=== PATIENT | female | born 1975 | race Caucasian/White ===

== ENCOUNTER 2017-06-11 02:27 | Emergency (ER) | payer OTHER ==
[~2017-06-11 02:27] MED LIST: LISI-461 PO; RALT400T PO; TOPI50TA16 PO; TRVHP PO
[2017-06-11 04:42] VITALS: BP 124/76; PULSE 78; O2SAT 96
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
== END 2017-06-11 04:43 | disposition home or self-care (01) ==
LOC: C.EDB 02:27
DX: T40.1X2A Poisoning by heroin, intentional self-harm, initial encounter (principal); X58.XXXA Exposure to other specified factors, initial encounter; I10 Essential (primary) hypertension; J45.909 Unspecified asthma, uncomplicated; F17.200 Nicotine dependence, unspecified, uncomplicated; Z83.3 Family history of diabetes mellitus

== ENCOUNTER 2017-07-23 20:24 | Inpatient (IN) | payer OTHER ==
[~2017-07-23] VITALS: Ht 172.7 cm; Wt 89.8 kg
[2017-07-23] MEDS ORDERED: SODIUM CHLORIDE 0.9% 1000ML 1,000 ML IV STA (20:33)
[2017-07-23] MEDS ORDERED: PROPOFOL IV EMULSION 10 MG/ML 100 ML VIAL IV STA (20:50)
[2017-07-23] MEDS ORDERED: PROPOFOL IV EMULSION 10 MG/ML 100 ML VIAL IV ONE ×2 (20:52→23:34)
[2017-07-23 20:54] LABS: ARTERIAL BLD GAS O2 SATURATION 99.9 % (90-95); ARTERIAL BLOOD GAS BASE EXCESS -3.1 mEq/L (-9-1.8); ARTERIAL BLOOD GAS HCO3 24 mmol/L (19-24); ARTERIAL BLOOD GAS PO2 524 mm/Hg (80-95)
[2017-07-23 20:59] LABS: ALLEN TEST POS (POS); O2 ADMINISTRATION 100%
--- NOTE | 2017-07-23 20:59 | DIAGNOSTIC IMAGING REPORT ---
CHEST ONE VIEW PORTABLE CLINICAL HISTORY: 42 years-old Female presenting with CODE BLUE. TECHNIQUE: Portable supine AP view of the chest was obtained. COMPARISON: 11/12/2015. FINDINGS: Endotracheal tube terminates at the level of the clavicular heads in the mid thoracic trachea. Cardiomediastinal silhouette normal. Lungs and pleural spaces clear. Osseous structures normal. Upper abdomen normal. IMPRESSION: 1. Appropriately positioned endotracheal tube. 2. No acute cardiopulmonary disease. Electronically signed by: Darwin Vázquez M.D. 07/23/2017 8:57 PM Dictated Date/Time: 07/23/2017 8:56 PM
[2017-07-23 21:00] LABS: BASO % 0.6 %; BASO ABS # 0.04 K/uL (0-0.2); COMPLETE YES; EOS % 2.2 %; HEMATOCRIT 39.3 % (37-47); IG% 0.2 %; MEAN CELL VOLUME 91.8 fL (80-100); MEAN CORPUSCULAR HEMOGLOBIN 30.8 pg (25-34); MEAN CORPUSCULAR HGB CONC 33.6 g/dl (32-36); MEAN PLATELET VOLUME 9.5 fL (7.4-10.4); MONO % 5.9 %; NEUT % 57.1 %; PLATELET COUNT 248 K/uL (130-400); RED BLOOD COUNT 4.28 M/uL (4.2-5.4); WHITE BLOOD COUNT 6.48 K/uL (4.8-10.8)
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
[2017-07-23 21:25] LABS: URINE APPEARANCE CLOUDY (CLEAR); URINE BILIRUBIN NEG (NEG); URINE COLOR YELLOW; URINE EPITHELIAL CELL AUTO >30 /lpf (0-5); URINE NITRITE NEG (NEG); URINE SPECIFIC GRAVITY 1.026 (1.000-1.030); UROBILINOGEN NEG (NEG)
[2017-07-23 21:26] LABS: MANUAL MICROSCOPIC REQUIRED? NO; REVIEW REQ? YES
[2017-07-23 21:32] LABS: PREG INTERNAL NEGATIVE QC NEG CLEAR BACKGROUND; PREG INTERNAL POSITIVE QC POS CONTROL LINE
[2017-07-23 21:36] LABS: URINE PATH CASTS 1-5 GRANULAR CASTS /lpf (0)
[2017-07-23 22:20] LABS: PARTIAL THROMBOPLASTIN RATIO 0.8; PROTHROMBIN TIME (PATIENT) 10.4 SECONDS (9.0-12.0)
[2017-07-23 22:31] LABS: BUN/CREATININE RATIO 8.3 (10-20); CALCIUM 8.2 mg/dl (8.5-10.1); CREATININE 1.09 mg/dl (0.60-1.20); POTASSIUM 3.4 mmol/L (3.5-5.1)
[2017-07-23 22:36] LABS: CKMB/CK RATIO 2.4 (0-3.0)
--- NOTE | 2017-07-23 23:46 | EMERGENCY ROOM VISIT NOTE ---
History Report prepared by Katherine: Sheyla Gardner Under the Supervision of: Dr. Yocasta Mccauley D.O. 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 The patient presents to the ED by EMS. She had a witnessed cardiac arrest. A bystander administered CPR for around 6 minutes when PD arrived. They gave the patient 4 of Narcan nasally after which her pulse and breathing came back. EMS then arrived. She continues to be unresponsive. Initially, her O2 sat was 50-60. She was intubated BILINGUAL MEDICAL ASSISTANT. Her friends report that she uses heroin. She most often uses nasally. Her blood sugar was 175. Her last blood pressure was 97/61. The history is limited due to the patient's AMS. Source of History: EMS Onset: BILINGUAL MEDICAL ASSISTANT Position: other (global) Quality: other (cardiac arrest) Timing: other (episodic) Modifying Factors (Relieving): other (narcan) Review of Systems Unobtainable due to AMS. Past Medical & Surgical Medical Problems: (1) Altered mental status (2) Asthma (3) Cardiac arrest (4) Cholecystectomy (5) History of - hypertension (6) Overdose (7) Syncope and collapse Family History Cancer Diabetes mellitus Heart disease Hypertension Social History Smoking Status: Current Every Day Smoker Alcohol Use: none Marital Status: in relationship Housing Status: lives with significant other Occupation Status: employed Current/Historical Medications Scheduled Fluticasone Propionate (Nasal) (Flonase Allergy Relief), 2 SPRAY SHYAM DAILY Lisinopril (Lisinopril), 40 MG PO DAILY Metoprolol Succinate (Toprol Xl), 50 MG PO DAILY Minocycline Hcl (Minocycline Hcl), 1 TAB PO DAILY Rizatriptan Benzoate (Maxalt), 5 MG PO UD Topiramate (Topamax), 50 MG PO BID Allergies Coded Allergies: Acetaminophen (Verified Allergy, Unknown, GI SYMPTOMS, 11/12/15) Physical Exam Vital Signs Date Time Temp Pulse Resp B/P (MAP) Pulse Ox O2 Delivery O2 Flow Rate FiO2 07/23/17 22:51 58 12 133/104 100 Mechanical Ventilator 70 07/23/17 21:48 66 12 160/114 100 Mechanical Ventilator 70 07/23/17 21:18 78 12 125/92 100 Mechanical Ventilator 07/23/17 21:15 70 07/23/17 20:38 100 Mechanical Ventilator 07/23/17 20:38 100 Mechanical Ventilator 07/23/17 20:33 86 07/23/17 20:29 83 15 105/80 99 Mechanical Ventilator Physical Exam Limited due to clinical condition. GENERAL: unresponsive, intubated EYE EXAM: PERRL OROPHARYNX: ET tube in place and secured, no obvious secretion or bleeding NECK: supple, no nuchal rigidity, no adenopathy, non-tender CHEST: No evidence of trauma. LUNGS: Equal breath sounds bilaterally with bagging. HEART: tachycardic but regular, no murmurs, S1 normal and S2 normal ABDOMEN: abdomen soft, non-tender, normo-active bowel sounds, no masses, no rebound or guarding. BACK: Back is symmetrical on inspection and there is no deformity, no midline tenderness, no CVA tenderness. PELVIS: Stable SKIN: no rashes and no bruising UPPER EXTREMITIES: upper extremities are grossly normal. No evidence of trauma. LOWER EXTREMITIES: No pitting edema. Good pulses. No evidence of trauma. NEURO EXAM: GCS of 3. Medical Decision & Procedures ER Provider Diagnostic Interpretation: Radiology results have been interpreted by the radiologist and reviewed by me. CHEST ONE VIEW PORTABLE CLINICAL HISTORY: 42 years-old Female presenting with CODE BLUE. TECHNIQUE: Portable supine AP view of the chest was obtained. COMPARISON: 11/12/2015. FINDINGS: Endotracheal tube terminates at the level of the clavicular heads in the mid thoracic trachea. Cardiomediastinal silhouette normal. Lungs and pleural spaces clear. Osseous structures normal. Upper abdomen normal. IMPRESSION: 1. Appropriately positioned endotracheal tube. 2. No acute cardiopulmonary disease. Electronically signed by: Darwin Vázquez M.D. 07/23/2017 8:57 PM Dictated Date/Time: 07/23/2017 8:56 PM Laboratory Results Test 07/23/17 20:39 07/23/17 20:50 07/23/17 21:15 07/23/17 22:01 Immature Granulocyte % (Auto) 0.2 % White Blood Count 6.48 K/uL (4.8-10.8) Red Blood Count 4.28 M/uL (4.2-5.4) Hemoglobin 13.2 g/dL (12.0-16.0) Hematocrit 39.3 % (37-47) Mean Corpuscular Volume 91.8 fL (80-100) Mean Corpuscular Hemoglobin 30.8 pg (25-34) Mean Corpuscular Hemoglobin Concent 33.6 g/dl (32-36) Platelet Count 248 K/uL (130-400) Mean Platelet Volume 9.5 fL (7.4-10.4) Neutrophils (%) (Auto) 57.1 % Lymphocytes (%) (Auto) 34.0 % Monocytes (%) (Auto) 5.9 % Eosinophils (%) (Auto) 2.2 % Basophils (%) (Auto) 0.6 % Neutrophils # (Auto) 3.71 K/uL (1.4-6.5) Lymphocytes # (Auto) 2.20 K/uL (1.2-3.4) Monocytes # (Auto) 0.38 K/uL (0.11-0.59) Eosinophils # (Auto) 0.14 K/uL (0-0.5) Basophils # (Auto) 0.04 K/uL (0-0.2) Immature Granulocyte # (Auto) 0.01 K/uL (0.00-0.02) Arterial Blood pH 7.30 (7.35-7.45) Arterial Blood Partial Pressure CO2 49 mmHg (35-46) Arterial Blood Partial Pressure O2 524 mm/Hg (80-95) Arterial Blood HCO3 24 mmol/L (19-24) Arterial Blood Oxygen Saturation 99.9 % (90-95) Arterial Blood Base Excess -3.1 mEq/L (-9-1.8) Arterial Blood Gas Delivery 100% Brayan Test POS (POS) Lactic Acid Level 1.9 mmol/L (0.4-2.0) Total Bilirubin 0.3 mg/dl (0.2-1) Direct Bilirubin 0.1 mg/dl (0-0.2) Aspartate Amino Transf (AST/SGOT) 18 U/L (15-37) Alanine Aminotransferase (ALT/SGPT) 26 U/L (12-78) Alkaline Phosphatase 53 U/L (45-117) Total Creatine Kinase 45 U/L (26-192) Total Protein 6.8 gm/dl (6.4-8.2) Albumin 3.4 gm/dl (3.4-5.0) Human Chorionic Gonadotropin, Qual NEG (NEG) Bedside Troponin I < 0.030 ng/ml (0-0.045) Urine Color YELLOW Urine Appearance CLOUDY (CLEAR) Urine pH 5.0 (4.5-7.5) Urine Specific [place] 1.026 (1.000-1.030) Urine Protein 2+ (NEG) Urine Glucose (UA) 1+ (NEG) Urine Ketones NEG (NEG) Urine Occult Blood NEG (NEG) Urine Nitrite NEG (NEG) Urine Bilirubin NEG (NEG) Urine Urobilinogen NEG (NEG) Urine Leukocyte Esterase NEG (NEG) Urine WBC (Auto) 10-30 /hpf (0-5) Urine RBC (Auto) 0-4 /hpf (0-4) Urine Hyaline Casts (Auto) >30 /lpf (0-5) Urine Epithelial Cells (Auto) >30 /lpf (0-5) Urine Bacteria (Auto) NEG (NEG) Urine Renal Epithelial Cells 5-10 /lpf (0-5) Urine Pathogenic Casts 1-5 GRANULAR CASTS /lpf (0) Urine Opiates Screen NEG (NEG) Urine Methadone, Qualitative NEG (NEG) Urine Barbiturates NEG (NEG) Urine Phencyclidine (PCP) Level NEG (NEG) Ur Amphetamine/Methamphetamine NEG (NEG) MDMA (Ecstasy) Screen NEG (NEG) Urine Benzodiazepines Screen POS (NEG) Urine Cocaine Metabolite NEG (NEG) Urine Marijuana (THC) NEG (NEG) Prothrombin Time 10.4 SECONDS (9.0-12.0) Prothromb Time International Ratio 1.0 (0.9-1.1) Activated Partial Thromboplast Time 21.9 SECONDS (21.0-31.0) Partial Thromboplastin Ratio 0.8 Laboratory results per my review. Medications Administered Medications (Trade) Dose Ordered Sig/Gato Route Start Time Stop Time Status Last Admin Dose Admin Sodium Chloride 1,000 ml @ 999 mls/hr Q1H1M STAT IV 07/23/17 20:33 07/23/17 21:33 DC 07/23/17 20:46 999 MLS/HR Propofol (Diprivan Iv Emulsion 100ml Vial) 1 dose NOW STAT IV 07/23/17 20:50 07/23/17 20:52 DC 07/23/17 21:04 1 DOSE Dexmedetomidine HCl 200 mcg/ Sodium Chloride 50 ml @ 0 mls/hr Q0M PRN IV 07/23/17 22:23 07/24/17 08:25 DC 07/24/17 05:39 27 MLS/HR ECG Indication: toxicologic Rate (beats per minute): 82 Rhythm: sinus rhythm Findings: no acute ischemic change, prolonged QT, other (normal QRS, normal TN) ED Course 2024: The patient was evaluated in room A1. A complete history and physical exam was performed. 2032: NSS 1000 ml @ 999 mls/hr IV. Pt will unresponsive. 2049: Propofol IV. Pt became more agitated, reaching for the tube, soft restraints of propofol started. Patient would not cooperate or follow commands , would not respond to verbal stimuli. 2104: I discussed the patient's case with Camryn Worley PA-C [facility] wash house supervisor. She will evaluate the patient. 2135: I reevaluated the patient. She is stable. Patient still sedated on propofol, hemodynamically stable. 2220: I reviewed the patient's case with Dr. Garber, [facility] hospitalist. He will evaluate the patient for further management. Medical Decision Differential diagnosis: Etiologies such as toxicologic, infection, hypoglycemia, electrolyte abnormalities, cardiac sources, intracerebral event, neurologic, as well as others were entertained. Given patient's history of recurrent abuse, likely suffered respiratory depression and respiratory failure leading to eventual cardiac arrest subsequent hypoxia. CPR was started, however given initiated by bystanders on followed by police, no ED ever applied, patient regained pulses following administration of Narcan by police. However still had agonal respirations and was unresponsive. Patient intubated in the field by EMS, and retained other vital signs throughout transport time. On arrival patient still unresponsive, being bagged through her ET tube but otherwise hemodynamically stable. Patient initially did require some sedation just prior to head CT given some movement and agitation noted. Patient again to reach for tube, however would not otherwise follow commands, or perform other purposeful movements. Patient's sedation was increased for trip to CAT scan and sips when travel to intensive care unit. Agents labs otherwise to presently reassuring given a rest and sip some return of spontaneous circulation. Decision made after discussion with ICU to not initiate hypothermia protocol after patient had begun to show more responsiveness. Patient with no prior history of drug abuse. Doubt bacteremia/ sepsis, doubt dysrhythmia as initiating events of cardiac arrest. Patient admitted to medicine to be monitored in intensive care unit overnight. No evidence of acute pulmonary edema or aspiration. Patient rechecked multiple times. Medication Reconcilliation Current Medication List: was personally reviewed by me Blood Pressure Screening Patient's blood pressure: Elevated blood pressure Blood pressure disposition: Elevated BP felt to be situational Consults Time Called: 2099 Consulting Physician: LEANDRO Canales wash house supervisor Returned Call: 2104 I discussed the patient's case with her. She will evaluate the patient. Additional Consults: Time Called: 2214 Consulted Physician: Dr. Garber [facility] hospitalist Returned Call: 2220 Additional Comments: I reviewed the patient's case with him. He will evaluate the patient for further management. Impression Primary Impression: Heroin overdose Additional Impressions: Cardiac arrest Hypoxia Respiratory failure Critical Care I have personally spent greater than 60 minutes of critical care time in the direct management of this patient. This includes bedside care, interpretation of diagnostic studies, and testing, discussion with consultants, patient, and family members, and other required patient management activities. This 60 minutes is in excess of all separately billable procedures. Scribe Attestation The scribe's documentation has been prepared under my direction and personally reviewed by me in its entirety. I confirm that the note above accurately reflects all work, treatment, procedures, and medical decision making performed by me. Departure Information Dispostion Being Evaluated By Hospitalist Referrals Abbie Briscoe D.O. (PCP) Patient Instructions My [facility] Problem Qualifiers Primary Impression: Heroin overdose Encounter type: initial encounter Injury intent: accidental or unintentional Qualified Codes: T40.1X1A - Poisoning by heroin, accidental ( unintentional), initial encounter Additional Impressions: Respiratory failure Chronicity: acute Respiratory failure complication: hypoxia Qualified Codes : J96.01 - Acute respiratory failure with hypoxia
[2017-07-24] VITALS (24 sets, daily range): BP systolic 99–162; BP diastolic 61–124; PULSE 64–120; TEMP 35.4–36.9; O2SAT 93–100; Ht 172.7 cm; Wt 89.8 kg
[2017-07-24] MEDS ORDERED: RIZA5TAB10 PO (00:11)
[2017-07-24] MEDS ORDERED: METO-478 PO (00:11)
[2017-07-24] MEDS ORDERED: LSN40 PO (00:11)
[2017-07-24] MEDS ORDERED: TOPI25TA55 PO (00:11)
[2017-07-24] MEDS ORDERED: MINO100T PO (00:11)
[2017-07-24] MEDS ORDERED: FLUT0.15 NAE (00:11)
[2017-07-24] MEDS ORDERED: POTASSIUM CHLR 10 MEQ / WTR 10 MEQ in PREMIXED WATER 100 ML IV ONE (00:30)
[2017-07-24] MEDS: DexMEDEtomidine HCL IV 200 MCG in SODIUM CHLORIDE 0.9% 50ML 48 ML IV PRN ×4 (00:39→05:39)
--- NOTE | 2017-07-24 01:06 | History and Physical ---
History & Physical Date & Time of Service: Jul 23, 2017 at 23:09 Chief Complaint: Heroin Overdose Primary Care Physician: No Doctor, Assigned History of Present Illness Source: clinic records, hospital records 42 year old female with PMH hypertension, migraines, prior myocardial infarction, and known heroin/tobacco abuse, recent ER visit on 06/11/17 for heroin overdose was brought to Emergency Room for cardiac arrest. History was obtained from ER chart and the ER physician due to pt was sedated and intubated. As per ER chart, Pt was found in her car acting strange when bystander pulled her out of her car and started CPR after bystanders could not find any pulse. information systems security officer arrived on the scene and administered 4 of Narcan via nasally after which her pulse and breathing were found. She was still unresponsive when EMS arrived. Her O2 sat was 50-60 %. She was intubated on the field and sedated with fentanyl and versed. She was brought in the ED by EMS. In the ED she started on propofol and put on soft restraint because she was trying to pull out the ET tube. ICU team contacted the manager ambulatory that decided that pt was not a candidate for hypothermia protocol. Currently pt is sedated and intubated. Vitals stable. Past Medical/Surgical History Medical Problems: (1) Asthma Status: Chronic (2) Cholecystectomy Status: Resolved (3) History of - hypertension Status: Chronic Family History Cancer Diabetes mellitus FHx: thyroid disease Heart disease Hypertension Stroke Social History Smoking Status: Current Every Day Smoker (one pack per day 15 years) Smokeless Tobacco Use: No Drug Use: heroin (per hospital records) Marital Status: in relationship Occupational Status: employed Allergies Coded Allergies: Acetaminophen (Verified Allergy, Unknown, GI SYMPTOMS, 11/12/15) Home Medications Scheduled Fluticasone Propionate (Nasal) (Flonase Allergy Relief), 2 SPRAY SHYAM DAILY Lisinopril (Lisinopril), 40 MG PO DAILY Metoprolol Succinate (Toprol Xl), 50 MG PO DAILY Minocycline Hcl (Minocycline Hcl), 1 TAB PO DAILY Rizatriptan Benzoate (Maxalt), 5 MG PO UD Topiramate (Topamax), 50 MG PO BID Review of Systems Unable to obtain because patient is intubated and sedated Physical Exam Vital Signs Date Time Temp Pulse Resp B/P (MAP) Pulse Ox O2 Delivery O2 Flow Rate FiO2 07/23/17 22:51 58 12 133/104 100 Mechanical Ventilator 70 07/23/17 21:48 66 12 160/114 100 Mechanical Ventilator 70 07/23/17 21:18 78 12 125/92 100 Mechanical Ventilator 07/23/17 21:15 70 07/23/17 20:38 100 Mechanical Ventilator 07/23/17 20:38 100 Mechanical Ventilator 07/23/17 20:33 86 07/23/17 20:29 83 15 105/80 99 Mechanical Ventilator General Appearance: + pertinent finding (Sedated and intubated on vent support) Head: normocephalic, atraumatic Eyes: + pertinent finding (pinpoint pupils) ENT: + pertinent finding (ET Tube in place) Neck: no JVD, trachea midline Respiratory/Chest: lungs clear, + pertinent finding (vent support) Cardiovascular: regular rate, rhythm, no JVD, no murmur Abdomen/GI: normal bowel sounds Back: normal inspection Extremities/Musculoskelatal: no pedal edema Neurologic/Psych: + pertinent finding (unable to assess because pt is sedated) Skin: warm/dry, no rash Diagnostics Laboratory Results Results Past 24 Hours Test 07/23/17 20:39 07/23/17 20:50 07/23/17 21:08 07/23/17 21:15 Range/Units White Blood Count 6.48 4.8-10.8 K/uL Red Blood Count 4.28 4.2-5.4 M/uL Hemoglobin 13.2 12.0-16.0 g/dL Hematocrit 39.3 37-47 % Mean Corpuscular Volume 91.8 80-100 fL Mean Corpuscular Hemoglobin 30.8 25-34 pg Mean Corpuscular Hemoglobin Concent 33.6 32-36 g/dl Platelet Count 248 130-400 K/uL Mean Platelet Volume 9.5 7.4-10.4 fL Neutrophils (%) (Auto) 57.1 % Lymphocytes (%) (Auto) 34.0 % Monocytes (%) (Auto) 5.9 % Eosinophils (%) (Auto) 2.2 % Basophils (%) (Auto) 0.6 % Neutrophils # (Auto) 3.71 1.4-6.5 K/uL Lymphocytes # (Auto) 2.20 1.2-3.4 K/uL Monocytes # (Auto) 0.38 0.11-0.59 K/uL Eosinophils # (Auto) 0.14 0-0.5 K/uL Basophils # (Auto) 0.04 0-0.2 K/uL RDW Standard Deviation 43.5 36.4-46.3 fL RDW Coefficient of Variation 13.1 11.5-14.5 % Immature Granulocyte % (Auto) 0.2 % Immature Granulocyte # (Auto) 0.01 0.00-0.02 K/uL Arterial Blood pH 7.30 7.35-7.45 Arterial Blood Partial Pressure CO2 49 35-46 mmHg Arterial Blood Partial Pressure O2 524 80-95 mm/Hg Arterial Blood HCO3 24 19-24 mmol/L Arterial Blood Oxygen Saturation 99.9 90-95 % Arterial Blood Base Excess -3.1 -9-1.8 mEq/L Arterial Blood Gas Delivery 100% Brayan Test POS POS Sodium Level 142 136-145 mmol/L Potassium Level 3.4 3.5-5.1 mmol/L Chloride Level 109 98-107 mmol/L Carbon Dioxide Level 22 21-32 mmol/L Anion Gap 11.0 3-11 mmol/L Blood Urea Nitrogen 9 7-18 mg/dl Creatinine 1.09 0.60-1.20 mg/dl Est Creatinine Clear Calc Drug Dose 89.9 ml/min Estimated GFR () 72.0 Estimated GFR (Non- 62.1 BUN/Creatinine Ratio 8.3 10-20 Random Glucose 170 70-99 mg/dl Lactic Acid Level 1.9 0.4-2.0 mmol/L Calcium Level 8.2 8.5-10.1 mg/dl Total Bilirubin 0.3 0.2-1 mg/dl Direct Bilirubin 0.1 0-0.2 mg/dl Aspartate Amino Transf (AST/SGOT) 18 15-37 U/L Alanine Aminotransferase (ALT/SGPT) 26 12-78 U/L Alkaline Phosphatase 53 45-117 U/L Total Creatine Kinase 45 26-192 U/L Creatine Kinase MB 1.1 0.5-3.6 ng/ml Creatine Kinase MB Ratio 2.4 0-3.0 Total Protein 6.8 6.4-8.2 gm/dl Albumin 3.4 3.4-5.0 gm/dl Human Chorionic Gonadotropin, Qual NEG NEG Bedside Troponin I < 0.030 0-0.045 ng/ml Bedside Glucose 144 70-90 mg/dl Urine Color YELLOW Urine Appearance CLOUDY CLEAR Urine pH 5.0 4.5-7.5 Urine Specific [place] 1.026 1.000-1.030 Urine Protein 2+ NEG Urine Glucose (UA) 1+ NEG Urine Ketones NEG NEG Urine Occult Blood NEG NEG Urine Nitrite NEG NEG Urine Bilirubin NEG NEG Urine Urobilinogen NEG NEG Urine Leukocyte Esterase NEG NEG Urine WBC (Auto) 10-30 0-5 /hpf Urine RBC (Auto) 0-4 0-4 /hpf Urine Hyaline Casts (Auto) >30 0-5 /lpf Urine Epithelial Cells (Auto) >30 0-5 /lpf Urine Bacteria (Auto) NEG NEG Urine Renal Epithelial Cells 5-10 0-5 /lpf Urine Pathogenic Casts 1-5 GRANULAR CASTS 0 /lpf Test 07/23/17 22:01 Range/Units Prothrombin Time 10.4 9.0-12.0 SECONDS Prothromb Time International Ratio 1.0 0.9-1.1 Activated Partial Thromboplast Time 21.9 21.0-31.0 SECONDS Partial Thromboplastin Ratio 0.8 Diagnostic Radiology CHEST ONE VIEW PORTABLE CLINICAL HISTORY: 42 years-old Female presenting with CODE BLUE. TECHNIQUE: Portable supine AP view of the chest was obtained. COMPARISON: 11/12/2015. FINDINGS: Endotracheal tube terminates at the level of the clavicular heads in the mid thoracic trachea. Cardiomediastinal silhouette normal. Lungs and pleural spaces clear. Osseous structures normal. Upper abdomen normal. IMPRESSION: 1. Appropriately positioned endotracheal tube. 2. No acute cardiopulmonary disease. Electronically signed by: Darwin Vázquez M.D. 07/23/2017 8:57 PM Dictated Date/Time: 07/23/2017 8:56 PM Impression Assessment and Plan Unresponsive Possible related to Heroin overdose Unknown if cardiac arrest occurred Started CPR on the field by Bystander Received Narcan on field On vent support Sedated with propofol 1st Cardiac marker negative EKG showed no significant ST changes Follow CM Repeat EKG in am ECHO in AM Cardiology Consult Hypoxic respiratory failure On Vent support ABG in am Plan to wean in am Drug Dependence UDS pending Consider drug rehab program HTN Med rec from [employer] showed lisinopril and metoprolol Will hold lisinopril for now QTC prolong Will avoid medications that increase QTC EKG in am DVT px on SCD Will start on heparin subq after CT head CODE Status Full code for now since pt was brought intubated Level of Care Critical Care Resuscitation Status FULL RESUSCITATION VTE Prophylaxis VTE Risk Assessment Done? Y/N: Yes Risk Level: Moderate Given or contraindicated: Unfractionated heparin SQ
[2017-07-24 02:05] LABS: BENZODIAZEPINE, URINE POS (NEG); COCAINE,URINE NEG (NEG); PHENCYCLIDINE, URINE NEG (NEG)
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
[2017-07-24] MEDS ORDERED: INFLUENZA ADMINISTRATION CHARGE ONE (04:45)
[2017-07-24] MEDS ORDERED: INFLUENZA VIRUS QUAD VACCINE 0.5 ML SYR IM. ONE (04:45)
[2017-07-24 07:49] LABS: HEMATOCRIT 38.5 % (37-47); MEAN CELL VOLUME 90.4 fL (80-100); MEAN CORPUSCULAR HEMOGLOBIN 30.8 pg (25-34); MEAN PLATELET VOLUME 9.4 fL (7.4-10.4); PLATELET COUNT 251 K/uL (130-400); RED BLOOD COUNT 4.26 M/uL (4.2-5.4); WHITE BLOOD COUNT 9.09 K/uL (4.8-10.8)
[2017-07-24 08:31] LABS: BLOOD UREA NITROGEN 8 mg/dl (7-18); BUN/CREATININE RATIO 11.6 (10-20); GLUCOSE 103 mg/dl (70-99)
[2017-07-24 08:32] LABS: CALCIUM 8.1 mg/dl (8.5-10.1); CARBON DIOXIDE 24 mmol/L (21-32); CHLORIDE 109 mmol/L (98-107); MAGNESIUM 2.2 mg/dl (1.8-2.4); PHOSPHORUS 3.4 mg/dl (2.5-4.9); POTASSIUM 3.8 mmol/L (3.5-5.1); SODIUM 141 mmol/L (136-145)
[2017-07-24] MEDS ORDERED: RIZATRIPTAN BENZOATE 10 MG TAB PO PRN (10:15)
--- NOTE | 2017-07-24 10:42 | Critical Care Progress Note ---
Critical Care Progress Note Date of Service Jul 24, 2017. ICU Day ICU Day Number: [address] Nash Subjective Patient sitting in bed, states she is not ok and everything hurts. She is complaining about getting robbed and hurt in the process, but does not go into any details. She points to site of recent phlebotomy and says her muscles hurt. She denies CP, dyspnea, palpitations, N/V, abdominal pain. Despite not feeling SOB, she is requesting home inhaler. She is otherwise eating breakfast and seeming to tolerate it. Objective GENERAL: alert, sitting in bed, no acute distress, non-toxic HEAD: NC/AT EYES: Normal sclera and conjunctiva NECK: Supple, no adenopathy, non-tender LUNGS: Clear to auscultation. Normal chest wall mechanics, good air entry. No crepitations, crackles, or wheezes HEART: RRR, S1 and S2 normal, no murmurs appreciated ABDOMEN: Soft, non-tender, normo-active bowel sounds, no masses, no rebound or guarding. SKIN: Warm, pink, dry. No erythema, rashes, or bruising. EXTREMITIES: Grossly normal. No pitting edema. Calves supple. NEURO: Alert, Ox3. No focal deficits. Cranial nerves II-XII grossly intact, normal speech PSYCH: Mood - emotional/fluctuant Current SOFA Score SOFA Score Response (Comments) Value Platelets (x10) > 150 0 Bilirubin (mg/dL) < 1.2 0 Andriy Coma Score 15 0 Level of Hypotension No Hypotension 0 Creatinine (mg/dL) < 1.2 0 Total 0 Assessment & Plan Reason Critically Ill: 42 year old female transferred to ICU for close monitoring secondary to likely drug overdose. Unknown if patient was ever in cardiac arrest, pulses present when EMS arrived. Bystanders stated no pulse and not sure if she was breathing. Patient was acting strangely and EMS was called. Sedated and paralyzed in field for intubation. PLAN: Neuro: * CAM-ICU negative * Head CT aborted midway, as patient woke up combative and extremely upset. * Monitor for neurological changes CV: Unknown if cardiac arrest occurred * Trend Cardiac Enzymes * EKG and ECHO ordered * Monitor on telemetry Essential HTN * Continue metoprolol and lisinopril Resp: * Saturating well on RA * O2 if need, per ICU protocol GI/Nutrition: * Diet: Regular * Labs unremarkable Fluids/Renal: * Fluids: Nil. Tolerating PO * BMP unremarkable. Continue to trend * Rudolph to be discontinued today. ID: * No evidence of infection: No leukocytosis, afebrile. Lactic acid WNL * Monitor fever curve * Note: Tylenol allergy; if fever occurs Heme: * H&H/Plts WNL; coags normal * Repeat labs in AM * No signs of gross bleeding on exam Endo: * No outpt diagnosis of DM. Accu-Checks per protocol * TSH (01/01/17) 2.52 Psych: * 1 to 1 initiated due to verbalization of suicidal ideation * Psychiatry consulted Access: * Peripheral IV VTE PPx: * SCDs Consults & Procedures Consultants: Critical care Psychiatry Procedures: Intubation 07/23/17 Extubation 07/24/17 Data Vital Signs: Date Time Temp Pulse Resp B/P (MAP) Pulse Ox O2 Delivery O2 Flow Rate FiO2 07/24/17 08:00 Room Air 07/24/17 08:00 36.5 70 18 99/61 (74) 97 Room Air 07/24/17 05:01 36.3 85 18 127/89 (102) 97 Room Air 07/24/17 04:31 35.9 99 20 153/124 (134) 99 Room Air 07/24/17 04:01 35.8 86 18 142/103 (116) 98 Room Air 07/24/17 04:00 100 Room Air 07/24/17 03:31 35.5 76 18 136/70 (92) 99 Room Air 07/24/17 03:01 35.4 93 20 127/92 (104) 96 Room Air 07/24/17 02:31 35.5 98 20 113/85 (94) 95 Room Air 07/24/17 02:01 35.8 94 20 142/96 (111) 93 Room Air 07/24/17 01:31 35.7 84 20 146/102 (117) 100 Room Air 07/24/17 01:08 35.6 90 20 145/106 (119) 100 Room Air 07/24/17 01:02 35.6 102 20 162/116 (131) 100 Room Air 07/24/17 00:42 35.4 97 20 150/107 (121) 100 Room Air 07/24/17 00:40 95 20 150/107 (121) 95 Room Air 07/24/17 00:10 100 Room Air 07/24/17 00:05 35.4 120 24 100 Room Air 07/23/17 23:45 71 12 146/105 100 07/23/17 22:51 58 12 133/104 100 Mechanical Ventilator 70 07/23/17 21:48 66 12 160/114 100 Mechanical Ventilator 70 07/23/17 21:18 78 12 125/92 100 Mechanical Ventilator 07/23/17 21:15 70 07/23/17 20:38 100 Mechanical Ventilator 07/23/17 20:38 100 Mechanical Ventilator 07/23/17 20:33 86 07/23/17 20:29 83 15 105/80 99 Mechanical Ventilator Laboratory Results: Last 24 Hours Test 07/23/17 20:39 07/23/17 20:50 07/23/17 21:08 07/23/17 21:15 White Blood Count 6.48 K/uL Red Blood Count 4.28 M/uL Hemoglobin 13.2 g/dL Hematocrit 39.3 % Mean Corpuscular Volume 91.8 fL Mean Corpuscular Hemoglobin 30.8 pg Mean Corpuscular Hemoglobin Concent 33.6 g/dl Platelet Count 248 K/uL Mean Platelet Volume 9.5 fL Neutrophils (%) (Auto) 57.1 % Lymphocytes (%) (Auto) 34.0 % Monocytes (%) (Auto) 5.9 % Eosinophils (%) (Auto) 2.2 % Basophils (%) (Auto) 0.6 % Neutrophils # (Auto) 3.71 K/uL Lymphocytes # (Auto) 2.20 K/uL Monocytes # (Auto) 0.38 K/uL Eosinophils # (Auto) 0.14 K/uL Basophils # (Auto) 0.04 K/uL RDW Standard Deviation 43.5 fL RDW Coefficient of Variation 13.1 % Immature Granulocyte % (Auto) 0.2 % Immature Granulocyte # (Auto) 0.01 K/uL Arterial Blood pH 7.30 Arterial Blood Partial Pressure CO2 49 mmHg Arterial Blood Partial Pressure O2 524 mm/Hg Arterial Blood HCO3 24 mmol/L Arterial Blood Oxygen Saturation 99.9 % Arterial Blood Base Excess -3.1 mEq/L Arterial Blood Gas Delivery 100% Brayan Test POS Sodium Level 142 mmol/L Potassium Level 3.4 mmol/L Chloride Level 109 mmol/L Carbon Dioxide Level 22 mmol/L Anion Gap 11.0 mmol/L Blood Urea Nitrogen 9 mg/dl Creatinine 1.09 mg/dl Est Creatinine Clear Calc Drug Dose 89.9 ml/min Estimated GFR () 72.0 Estimated GFR (Non- 62.1 BUN/Creatinine Ratio 8.3 Random Glucose 170 mg/dl Lactic Acid Level 1.9 mmol/L Calcium Level 8.2 mg/dl Total Bilirubin 0.3 mg/dl Direct Bilirubin 0.1 mg/dl Aspartate Amino Transf (AST/SGOT) 18 U/L Alanine Aminotransferase (ALT/SGPT) 26 U/L Alkaline Phosphatase 53 U/L Total Creatine Kinase 45 U/L Creatine Kinase MB 1.1 ng/ml Creatine Kinase MB Ratio 2.4 Total Protein 6.8 gm/dl Albumin 3.4 gm/dl Human Chorionic Gonadotropin, Qual NEG Bedside Troponin I < 0.030 ng/ml Bedside Glucose 144 mg/dl Urine Color YELLOW Urine Appearance CLOUDY Urine pH 5.0 Urine Specific [place] 1.026 Urine Protein 2+ Urine Glucose (UA) 1+ Urine Ketones NEG Urine Occult Blood NEG Urine Nitrite NEG Urine Bilirubin NEG Urine Urobilinogen NEG Urine Leukocyte Esterase NEG Urine WBC (Auto) 10-30 /hpf Urine RBC (Auto) 0-4 /hpf Urine Hyaline Casts (Auto) >30 /lpf Urine Epithelial Cells (Auto) >30 /lpf Urine Bacteria (Auto) NEG Urine Renal Epithelial Cells 5-10 /lpf Urine Pathogenic Casts 1-5 GRANULAR CASTS /lpf Urine Opiates Screen NEG Urine Methadone, Qualitative NEG Urine Barbiturates NEG Urine Phencyclidine (PCP) Level NEG Ur Amphetamine/Methamphetamine NEG MDMA (Ecstasy) Screen NEG Urine Benzodiazepines Screen POS Urine Cocaine Metabolite NEG Urine Marijuana (THC) NEG Test 07/23/17 22:01 07/24/17 04:44 07/24/17 07:33 Prothrombin Time 10.4 SECONDS Prothromb Time International Ratio 1.0 Activated Partial Thromboplast Time 21.9 SECONDS Partial Thromboplastin Ratio 0.8 Creatine Kinase MB Ratio White Blood Count 9.09 K/uL Red Blood Count 4.26 M/uL Hemoglobin 13.1 g/dL Hematocrit 38.5 % Mean Corpuscular Volume 90.4 fL Mean Corpuscular Hemoglobin 30.8 pg Mean Corpuscular Hemoglobin Concent 34.0 g/dl RDW Standard Deviation 42.6 fL RDW Coefficient of Variation 12.9 % Platelet Count 251 K/uL Mean Platelet Volume 9.4 fL Sodium Level 141 mmol/L Potassium Level 3.8 mmol/L Chloride Level 109 mmol/L Carbon Dioxide Level 24 mmol/L Anion Gap 8.0 mmol/L Blood Urea Nitrogen 8 mg/dl Creatinine 0.70 mg/dl Est Creatinine Clear Calc Drug Dose 121.4 ml/min Estimated GFR () 123.0 Estimated GFR (Non- 106.1 BUN/Creatinine Ratio 11.6 Random Glucose 103 mg/dl Calcium Level 8.1 mg/dl Phosphorus Level 3.4 mg/dl Magnesium Level 2.2 mg/dl Creatine Kinase MB 2.3 ng/ml Troponin I < 0.015 ng/ml Resident Tracking Resident Involvement: Resident Care Provided Care Provided: Adult Hospital Medicine
--- NOTE | 2017-07-24 13:30 | Psychiatric Progress Notes ---
Psychiatric Progress Note Date of Service Jul 24, 2017. Notes patient unable to awaken to participate in psychiatric consultation at this time. On review of chart, she has had multiple trips to ED/admits for substance abuse and related mood issues. She was admitted here in 2006 with a diagnosis of bipolar disorder and 2013 to [facility]. External med history check doesn't reveal any current outpatient psychiatric prescriber. No history exists in [place] PDMP database. Given history and severity of OD, patient should not be allowed to leave AMA without a psychiatric assessment being completed.
--- NOTE | 2017-07-24 17:10 | ECHOCARDIOGRAM REPORT ---
*NOTICE TO RECEIVING [employer] AGENCY This information is strictly Confidential and protected under [place] law. [place] law prohibits you from making any further disclosure of this information unless further disclosure is expressly permitted by the written consent of the person to whom it pertains or is authorized by law. A general authorization for the release of medical or other information is not sufficient for this purpose. Hospital accepts no responsibility if the information is made available to any other person, INCLUDING THE PATIENT. Interpretation Summary * Name: HUSEYIN WOODS Study Date: 07/24/2017 10:18 AM BP: 99/61 mmHg * [facility] HR: 70 * : 1975 (M/d/yyyy) Gender: Female Height: 68 in * Age: 42 yrs Ethnicity: [place] Weight: 260 lb * Ordering Physician: Christian Garber * Referring Physician: Self, Referred * Performed By: Chloé Avendano RDCS * * Reason For Study: CARDIAC ARREST * BSA: 2.3 m2 * -- Conclusions -- * The left ventricle is normal in size. * There is normal left ventricular wall thickness. * The left ventricular wall motion is normal. * Left ventricular systolic function is normal. * Ejection Fraction = 55-60%. * There are no significant valvular abnormalities. * There is no pericardial effusion. Procedure Details * A complete two-dimensional transthoracic echocardiogram was performed (2D, M-mode, Doppler and color flow Doppler). Left Ventricle * The left ventricle is normal in size. * There is normal left ventricular wall thickness. * Ejection Fraction = 55-60%. * Left ventricular systolic function is normal. * The left ventricular wall motion is normal. Right Ventricle * The right ventricle is normal in size and function. Atria * The left atrial size is normal. * Right atrial size is normal. * No ASD detected; PFO is not assessed. Mitral Valve * The mitral valve anatomy is normal. * There is no mitral valve stenosis. * There is trace mitral regurgitation. Tricuspid Valve * The tricuspid valve anatomy is normal. * There is no tricuspid stenosis. * There is trace tricuspid regurgitation. Aortic Valve * The aortic valve is trileaflet. * No hemodynamically significant valvular aortic stenosis. * No aortic regurgitation is present. Pulmonic Valve * The pulmonic valve is not well visualized. Great Vessels * The aortic root is normal size. Pericardium/Pleural * There is no pericardial effusion. Great Vessels * The inferior vena cava is mildly dilated. MMode 2D Measurements and Calculations IVSd 1.3 cm IVSs 1.8 cm LVIDd 3.9 cm LVIDs 2.7 cm LVPWd 1.3 cm LVPWs 1.7 cm IVS/LVPW 1.0 FS 30.6 % EDV(Teich) 66.2 ml ESV(Teich) 27.3 ml EF(Teich) 58.7 % EDV(cubed) 59.6 ml ESV(cubed) 20.0 ml EF(cubed) 66.5 % % IVS thick 35.1 % % LVPW thick 29.3 % LV mass(C)d 185.1 grams LV mass(C)dI 81.0 grams/m\S\2 LV mass(C)s 183.6 grams LV mass(C)sI 80.3 grams/m\S\2 SV(Teich) 38.8 ml SI(Teich) 17.0 ml/m\S\2 SV(cubed) 39.6 ml SI(cubed) 17.3 ml/m\S\2 LVAd ap4 30.1 cm\S\2 LVLd ap4 8.8 cm EDV(MOD-sp4) 86.3 ml EDV(sp4-el) 89.9 ml LVAs ap4 19.6 cm\S\2 LVLs ap4 7.2 cm ESV(MOD-sp4) 40.5 ml ESV(sp4-el) 40.5 ml EF(MOD-sp4) 53.1 % EF(sp4-el) 55.0 % LVAd ap2 28.7 cm\S\2 LVLd ap2 8.4 cm EDV(MOD-sp2) 83.2 ml LVAs ap2 16.4 cm\S\2 LVLs ap2 7.2 cm ESV(MOD-sp2) 32.6 ml EF(MOD-sp2) 60.8 % SV(MOD-sp4) 45.8 ml SI(MOD-sp4) 20.1 ml/m\S\2 SV(MOD-sp2) 50.6 ml SI(MOD-sp2) 22.1 ml/m\S\2 SV(sp4-el) 49.4 ml SI(sp4-el) 21.6 ml/m\S\2
--- NOTE | 2017-07-24 19:00 | Progress Note ---
Medicine Progress Note Date & Time of Visit: Jul 24, 2017 at 18:51. Subjective Patient denies any symptoms; has no complaints. Denies any suicidal ideation. Tolerating PO. Ambulating without difficulty. No events on telemetry. Has been mostly sleeping today and does not show any interest in answering any questions about the events leading to her admission. Objective Last 8 Hrs Date Time Temp Pulse Resp B/P (MAP) Pulse Ox O2 Delivery O2 Flow Rate FiO2 07/24/17 16:00 95 Room Air 07/24/17 15:45 36.9 66 16 122/78 (93) 97 Room Air 07/24/17 12:00 36.8 64 105/67 (80) 98 Room Air 07/24/17 12:00 Room Air Physical Exam: GENERAL: Patient is in no acute distress. HEENT: No acute trauma, normocephalic, mucous membranes moist, no nasal congestion, no scleral icterus. NECK: No stridor, trachea is midline. LUNGS: Clear to auscultation bilaterally, no wheeze, no rhonchi, breath sounds equal. HEART: Without murmurs gallops or rubs, regular rate and rhythm. ABDOMEN: Soft, nontender, bowel sounds positive, no hepatosplenomegaly EXTREMITIES: No cyanosis or edema, full range of motion of all the joints without pain or difficulty, multiple bruises/ulloa/scars on bilateral UE. NEUROLOGIC: Oriented x 3, no acute motor or sensory deficits, no focal weakness. SKIN: No rash, no jaundice, no diaphoresis. Laboratory Results: Last 24 Hours Test 07/23/17 20:39 07/23/17 20:50 07/23/17 21:08 07/23/17 21:15 White Blood Count 6.48 K/uL Red Blood Count 4.28 M/uL Hemoglobin 13.2 g/dL Hematocrit 39.3 % Mean Corpuscular Volume 91.8 fL Mean Corpuscular Hemoglobin 30.8 pg Mean Corpuscular Hemoglobin Concent 33.6 g/dl Platelet Count 248 K/uL Mean Platelet Volume 9.5 fL Neutrophils (%) (Auto) 57.1 % Lymphocytes (%) (Auto) 34.0 % Monocytes (%) (Auto) 5.9 % Eosinophils (%) (Auto) 2.2 % Basophils (%) (Auto) 0.6 % Neutrophils # (Auto) 3.71 K/uL Lymphocytes # (Auto) 2.20 K/uL Monocytes # (Auto) 0.38 K/uL Eosinophils # (Auto) 0.14 K/uL Basophils # (Auto) 0.04 K/uL RDW Standard Deviation 43.5 fL RDW Coefficient of Variation 13.1 % Immature Granulocyte % (Auto) 0.2 % Immature Granulocyte # (Auto) 0.01 K/uL Arterial Blood pH 7.30 Arterial Blood Partial Pressure CO2 49 mmHg Arterial Blood Partial Pressure O2 524 mm/Hg Arterial Blood HCO3 24 mmol/L Arterial Blood Oxygen Saturation 99.9 % Arterial Blood Base Excess -3.1 mEq/L Arterial Blood Gas Delivery 100% Brayan Test POS Sodium Level 142 mmol/L Potassium Level 3.4 mmol/L Chloride Level 109 mmol/L Carbon Dioxide Level 22 mmol/L Anion Gap 11.0 mmol/L Blood Urea Nitrogen 9 mg/dl Creatinine 1.09 mg/dl Est Creatinine Clear Calc Drug Dose 89.9 ml/min Estimated GFR () 72.0 Estimated GFR (Non- 62.1 BUN/Creatinine Ratio 8.3 Random Glucose 170 mg/dl Lactic Acid Level 1.9 mmol/L Calcium Level 8.2 mg/dl Total Bilirubin 0.3 mg/dl Direct Bilirubin 0.1 mg/dl Aspartate Amino Transf (AST/SGOT) 18 U/L Alanine Aminotransferase (ALT/SGPT) 26 U/L Alkaline Phosphatase 53 U/L Total Creatine Kinase 45 U/L Creatine Kinase MB 1.1 ng/ml Creatine Kinase MB Ratio 2.4 Total Protein 6.8 gm/dl Albumin 3.4 gm/dl Human Chorionic Gonadotropin, Qual NEG Bedside Troponin I < 0.030 ng/ml Bedside Glucose 144 mg/dl Urine Color YELLOW Urine Appearance CLOUDY Urine pH 5.0 Urine Specific [place] 1.026 Urine Protein 2+ Urine Glucose (UA) 1+ Urine Ketones NEG Urine Occult Blood NEG Urine Nitrite NEG Urine Bilirubin NEG Urine Urobilinogen NEG Urine Leukocyte Esterase NEG Urine WBC (Auto) 10-30 /hpf Urine RBC (Auto) 0-4 /hpf Urine Hyaline Casts (Auto) >30 /lpf Urine Epithelial Cells (Auto) >30 /lpf Urine Bacteria (Auto) NEG Urine Renal Epithelial Cells 5-10 /lpf Urine Pathogenic Casts 1-5 GRANULAR CASTS /lpf Urine Opiates Screen NEG Urine Methadone, Qualitative NEG Urine Barbiturates NEG Urine Phencyclidine (PCP) Level NEG Ur Amphetamine/Methamphetamine NEG MDMA (Ecstasy) Screen NEG Urine Benzodiazepines Screen POS Urine Cocaine Metabolite NEG Urine Marijuana (THC) NEG Test 07/23/17 22:01 07/24/17 04:44 07/24/17 07:33 07/24/17 11:28 Prothrombin Time 10.4 SECONDS Prothromb Time International Ratio 1.0 Activated Partial Thromboplast Time 21.9 SECONDS Partial Thromboplastin Ratio 0.8 Creatine Kinase MB Ratio White Blood Count 9.09 K/uL Red Blood Count 4.26 M/uL Hemoglobin 13.1 g/dL Hematocrit 38.5 % Mean Corpuscular Volume 90.4 fL Mean Corpuscular Hemoglobin 30.8 pg Mean Corpuscular Hemoglobin Concent 34.0 g/dl RDW Standard Deviation 42.6 fL RDW Coefficient of Variation 12.9 % Platelet Count 251 K/uL Mean Platelet Volume 9.4 fL Sodium Level 141 mmol/L Potassium Level 3.8 mmol/L Chloride Level 109 mmol/L Carbon Dioxide Level 24 mmol/L Anion Gap 8.0 mmol/L Blood Urea Nitrogen 8 mg/dl Creatinine 0.70 mg/dl Est Creatinine Clear Calc Drug Dose 121.4 ml/min Estimated GFR () 123.0 Estimated GFR (Non- 106.1 BUN/Creatinine Ratio 11.6 Random Glucose 103 mg/dl Calcium Level 8.1 mg/dl Phosphorus Level 3.4 mg/dl Magnesium Level 2.2 mg/dl Creatine Kinase MB 2.3 ng/ml Troponin I < 0.015 ng/ml Bedside Glucose 84 mg/dl Test 07/24/17 12:46 07/24/17 16:25 Troponin I 0.016 ng/ml Bedside Glucose 87 mg/dl Date/Time Source Procedure Growth Status 07/24/17 00:30 Nasal MRSA DNA Surveillance Screen - Final Specimen Negative for MRSA by DNA Probe Complete Assessment & Plan Unresponsive/Possible pulseless event: per bystander -suspected Heroin overdose -it is not certain if cardiac arrest occurred, but patient was given CPR by a bystander who witnessed her go unresponsive -received Narcan several doses by law enforcement and patient appeared to respond well -was intubated and ventilated by EMS, and sedated with propofol -initial cardiac markers negative -EKG: no significant ST or T wave abnormalities -serial CM negative -TTE: EF 55-60% -no events on tele Hypoxic respiratory failure: -was intubated last night on the scene; self extubated last night en route to the ICU from the ER -maintaining sats on oxygen via NC -ABG Suspected Drug Abuse: -UDS: only positive for benzodiazepines -Consider drug rehab program -per records has a prior history of heroin use/overdose -suspected heroin overdose last night, seemed to respond to narcan given on the scene by law enforcement; however UDS does not show this -Psych consulted, patient cannot leave AMA until further evaluation HTN: -per outpatient records on lisinopril and metoprolol -lisinopril held for now QTC prolongation: -avoid medications that increase QTC -repeat EKG in am Current Inpatient Medications: Current Inpatient Medications Medications (Trade) Dose Ordered Sig/Gato Route Start Time Stop Time Status Last Admin Dose Admin Fluticasone Propionate (Flonase Nasal [place]) 2 sprays DAILY SHYAM 07/25/17 09:00 08/24/17 08:59 Metoprolol Succinate (Toprol Xl Tab) 50 mg DAILY PO 07/25/17 09:00 08/24/17 08:59 Rizatriptan Benzoate (Maxalt Tab) 5 mg DAILY PRN PO 07/24/17 10:15 08/23/17 10:14 Topiramate (Topamax Tab) 50 mg BID PO 07/24/17 21:00 08/23/17 20:59 Lisinopril (Zestril Tab) 40 mg DAILY PO 07/25/17 09:00 08/24/17 08:59
[2017-07-24] MEDS: TOPIRAMATE 50 MG TAB PO SCH (20:53)
[2017-07-25 00:34] VITALS: BP 117/84; PULSE 86; TEMP 37.3; O2SAT 99
[2017-07-25 03:37] VITALS: BP 140/89; PULSE 87; TEMP 36.6; O2SAT 98
[2017-07-25 04:00] VITALS: O2SAT 99
[2017-07-25 04:24] VITALS: BP 126/76; PULSE 78; TEMP 36.9; O2SAT 97
[2017-07-25 07:15] VITALS: BP 154/103; PULSE 86; TEMP 36.9; O2SAT 99
[2017-07-25] MEDS ORDERED: LISINOPRIL 40 MG TAB PO SCH (09:00)
[2017-07-25] MEDS ORDERED: FLUTICASONE PROPIONATE NA SPR 16 GM BTL NAE SCH (09:00)
[2017-07-25] MEDS ORDERED: METOPROLOL SUCC 50MG EXT REL TAB PO SCH (09:00)
[2017-07-25] MEDS: TOPIRAMATE 50 MG TAB PO SCH (09:46)
[2017-07-25] MEDS ORDERED: DOCUSATE SODIUM 100 MG CAP PO PRN (13:15)
[2017-07-25] MEDS ORDERED: POLYETHYLENE (MIRALAX) 17 GM PACK PO SCH (13:15)
[2017-07-25] MEDS ORDERED: TOPI25TA55 PO (14:06)
[2017-07-25] MEDS ORDERED: MINO100T PO (14:06)
[2017-07-25] MEDS ORDERED: LSN40 PO (14:06)
[2017-07-25] MEDS ORDERED: METO-478 PO (14:06)
--- NOTE | 2017-07-25 14:11 | Discharge Instructions ---
Discharge Instructions Date of Service Jul 25, 2017. Admission Reason for Admission: Cardiac Arrest, Overdose Discharge Discharge Diagnosis / Problem: Cardiac arrest, Overdose Discharge Goals Goal(s): Diagnostic testing, Therapeutic intervention Activity Recommendations Activity Limitations: per Instructions/Follow-up section Exercise/Sports Limitations: gradually increase as tolerated Please refrain from any use of illicit substances, and misuse of legal medications. . Instructions / Follow-Up Instructions / Follow-Up Please see Dr. Briscoe for hospital follow up on July 28 at 9:35 AM Current Hospital Diet Patient's current hospital diet: Regular Diet Discharge Diet Recommended Diet: AHA Diet (Heart Healthy) Pending Studies Studies pending at discharge: no Medical Emergencies . Who to Call and When: Medical Emergencies: If at any time you feel your situation is an emergency, please call 911 immediately. . Non-Emergent Contact Non-Emergency issues call your: Primary Care Provider . . "Provider Documentation" section prepared by Jeannine Fitch. . VTE Core Measure Inpt VTE Proph given/why not?: Unfractionated heparin SQ
--- NOTE | 2017-07-25 14:13 | Discharge Summary ---
Discharge Summary Date of Service Jul 25, 2017. Discharge Summary Admission Date: Jul 23, 2017 at 23:09 Discharge Date: Jul 25, 2017 Admission Information HPI (per Admitting provider): 42 year old female with PMH hypertension, migraines, prior myocardial infarction, and known heroin/tobacco abuse, recent ER visit on 06/11/17 for heroin overdose was brought to Emergency Room for cardiac arrest. History was obtained from ER chart and the ER physician due to pt was sedated and intubated. As per ER chart, Pt was found in her car acting strange when bystander pulled her out of her car and started CPR after bystanders could not find any pulse. hazard mitigation officer arrived on the scene and administered 4 of Narcan via nasally after which her pulse and breathing were found. She was still unresponsive when EMS arrived. Her O2 sat was 50-60 %. She was intubated on the field and sedated with fentanyl and versed. She was brought in the ED by EMS. In the ED she started on propofol and put on soft restraint because she was trying to pull out the ET tube. ICU team contacted the counter hand that decided that pt was not a candidate for hypothermia protocol. Currently pt is sedated and intubated. Vitals stable. Physical Exam (per Admitting): General Appearance: + pertinent finding (Sedated and intubated on vent support) Head: normocephalic, atraumatic Eyes: + pertinent finding (pinpoint pupils) ENT: + pertinent finding (ET Tube in place) Neck: no JVD, trachea midline Respiratory/Chest: lungs clear, + pertinent finding (vent support) Cardiovascular: regular rate, rhythm, no JVD, no murmur Abdomen/GI: normal bowel sounds Back: normal inspection Extremities/Musculoskelatal: no pedal edema Neurologic/Psych: + pertinent finding (unable to assess because pt is sedated) Skin: warm/dry, no rash Hospital Course Unresponsive/Possible pulseless event: per bystander -suspected Heroin overdose -it is not certain if cardiac arrest occurred, but patient was given CPR by a bystander who witnessed her go unresponsive -received Narcan several doses by law enforcement and patient appeared to respond well -was intubated and ventilated by EMS, and sedated with propofol -initial cardiac markers negative -EKG: no significant ST or T wave abnormalities -serial CM negative -TTE: EF 55-60% -no events on tele Hypoxic respiratory failure: -was intubated last night on the scene; self extubated last night en route to the ICU from the ER -maintaining sats on oxygen via NC -ABG Suspected Drug Abuse: -UDS: only positive for benzodiazepines -Consider drug rehab program -per records has a prior history of heroin use/overdose -suspected heroin overdose last night, seemed to respond to narcan given on the scene by law enforcement; however UDS does not show this -Psych consulted, patient cannot leave AMA until further evaluation HTN: -per outpatient records on lisinopril and metoprolol -lisinopril held for now QTC prolongation: -avoid medications that increase QTC -repeat EKG in am Total time spent on discharge = This includes examination of the patient, discharge planning, medication reconciliation, and communication with other providers.
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
[2017-07-25 14:38] VITALS: BP 154/103; PULSE 86; TEMP 36.9; O2SAT 99
[2017-07-27 01:59] LABS: HYDROXYETHYLFLURAZEPAM CONF NEGATIVE NG/ML (CUTOFF=50); HYDROXYMIDAZOLAM >2000 NG/ML (CUTOFF=50); HYDROXYTRIAZOLAM CONF NEGATIVE NG/ML (CUTOFF=50); TEMAZEPAM CONF NEGATIVE NG/ML (CUTOFF=50)
== END 2017-07-25 14:53 | disposition home or self-care (01) | DRG 917 ==
LOC: EDBD 20:24 → C.EDA 20:28 → C.MSICU 23:09 → ENRESERV 23:24 → C.2E 07-24 16:15
PROVIDERS: ADMIT Internal Medicine; ATTEND Internal Medicine
DX: T40.1X1A Poisoning by heroin, accidental (unintentional), initial encounter (principal); J96.91 Respiratory failure, unspecified with hypoxia; I10 Essential (primary) hypertension; I25.2 Old myocardial infarction; J45.909 Unspecified asthma, uncomplicated; Z79.899 Other long term (current) drug therapy; F17.200 Nicotine dependence, unspecified, uncomplicated; Z88.6 Allergy status to analgesic agent